=== PATIENT | female | born 1985 | race Caucasian/White ===

== ENCOUNTER 2017-02-07 15:21 | Emergency (ER) | payer MEDICAID ==
[~2017-02-07] VITALS: Ht 167.6 cm; Wt 95.2 kg
[2017-02-07 18:54] VITALS: BP 135/87
== END 2017-02-07 18:54 | disposition home or self-care (01) ==
LOC: ED 15:21
DX: S09.93XA Unspecified injury of face, initial encounter (principal); F17.210 Nicotine dependence, cigarettes, uncomplicated; M54.2 Cervicalgia; Z56.0 Unemployment, unspecified; Z71.6 Tobacco abuse counseling; Y04.0XXA Assault by unarmed brawl or fight, initial encounter; Y93.89 Activity, other specified; Y99.8 Other external cause status; Y92.89 Other specified places as the place of occurrence of the external cause
CPT/HCPCS: 99406

== ENCOUNTER 2017-05-07 19:26 | Inpatient (IN) | payer MEDICAID ==
[~2017-05-07] VITALS: Ht 167.6 cm; Wt 90.3 kg
[2017-05-07 20:35] LABS: BASOPHIL % 0.1 % (0-2)
[2017-05-07 20:36] LABS: PLATELET COUNT 498 x10^3mcL (130-400); RED CELL DISTRIBUTION WIDTH 18.5 % (11.5-14.5)
[2017-05-07 20:40] LABS: CALCIUM 8.8 mg/dL (8.5-10.1); CARBON DIOXIDE 26.7 mmol/L (21-32); CHLORIDE SERUM 102 mmol/L (98-107); GFR1 > 60 mL/min; GLUCOSE SERUM 104 mg/dL (74-106); POTASSIUM SERUM 3.4 mmol/L (3.5-5.1); SODIUM SERUM 139 mmol/L (136-145)
[2017-05-07 20:45] LABS: ALKALINE PHOSPHATASE 132 U/L (46-116); ALT/SGPT 19 U/L (14-59); AST/SGOT 14 U/L (15-37); BILIRUBIN TOTAL 0.4 mg/dL (0.20-1.00); LIPASE 159 IU/L (73-393); TOTAL PROTEIN, SERUM 7.5 g/dL (6.4-8.2)
[2017-05-07 20:46] LABS: ALBUMIN 2.5 g/dL (3.4-5.0)
[2017-05-07] MEDS ORDERED: MONONESSA1 TAB (22:58)
[2017-05-07] MEDS ORDERED: APAP500 MG (22:58)
[2017-05-07] MEDS ORDERED: FERROUS SULFAT324 M1 (22:58)
[2017-05-07] MEDS ORDERED: MASON NATURAL1000 IU (22:59)
[2017-05-07 23:28] LABS: microscopic required? NO
[2017-05-07 23:36] VITALS: BP 117/65
[2017-05-07 23:45] LABS: urine erythrocyte NEGATIVE (NEGATIVE)
[2017-05-07 23:54] VITALS: BP 117/65
[2017-05-08 00:33] LABS: CHOLESTEROL/HDL RATIO 2.3; T3 TOTAL 1.29 ng/mL
[2017-05-08 00:34] LABS: FREE T4 1.36 ng/dL (0.76-1.46); FREE THYROXINE INDEX 3.9 ug/dL (1.4-4.5); T4(THYROXINE) 13.1 ug/dL (4.7-13.3)
[2017-05-08 00:37] LABS: AMPHETAMINE QUAL UR NONE DETECTED (NEG <=1000)
[2017-05-08 06:17] VITALS: BP 101/54
[2017-05-08 06:37] LABS: BASOPHIL % 0.1 % (0-2)
[2017-05-08 06:49] LABS: CALCIUM 7.9 mg/dL (8.5-10.1); CARBON DIOXIDE 23.4 mmol/L (21-32); CHLORIDE SERUM 106 mmol/L (98-107); CREATININE SERUM 0.8 mg/dL (0.6-1.0); GFR1 > 60 mL/min; GLUCOSE SERUM 85 mg/dL (74-106); PLATELET COUNT 408 x10^3mcL (130-400); POTASSIUM SERUM 3.7 mmol/L (3.5-5.1); RED CELL DISTRIBUTION WIDTH 18.6 % (11.5-14.5); SODIUM SERUM 140 mmol/L (136-145)
[2017-05-08 07:33] LABS: rbc morphology (normal/abnorm) ABNORMAL (NORMAL)
[2017-05-08 09:20] VITALS: BP 92/43
[2017-05-08 13:24] VITALS: BP 97/48
[2017-05-08 16:17] VITALS: BP 97/48
[2017-05-08 18:10] VITALS: BP 127/62
[2017-05-08 21:08] VITALS: BP 106/66
== END 2017-05-08 22:23 | disposition short-term general hospital (02) | DRG 720 ==
LOC: ED 19:26 → DU 22:12 → EDBEDREQ 22:33 → DU 23:28
PROVIDERS: Emergency Medicine; ADMIT Family Medicine
DX: A41.9 Sepsis, unspecified organism (principal); E43 Unspecified severe protein-calorie malnutrition; C19 Malignant neoplasm of rectosigmoid junction; E87.6 Hypokalemia; D49.6 Neoplasm of unspecified behavior of brain; D63.0 Anemia in neoplastic disease; D63.8 Anemia in other chronic diseases classified elsewhere; F17.210 Nicotine dependence, cigarettes, uncomplicated; K52.9 Noninfective gastroenteritis and colitis, unspecified; Z68.31 Body mass index [BMI] 31.0-31.9, adult; Z83.71 Family history of colonic polyps
CPT/HCPCS: 83880; 84439; J0500; J1885; J2270; J2405; J2543; J2916; J7030; J8597; Q0092